=== PATIENT | female | born 1985 | race Caucasian/White ===

== ENCOUNTER → 2016-10-12 | Outpatient (CLI) | payer MEDICAID ==
[~2016-10-12] MED LIST: COLACE100 MG PO; FEOSOL325 MG PO; FLONASE 50 MCG/16 GM NOSE; HUMALOG100 UNIT/1 SUB-Q; K-TAB 10MEQ10 MEQ PO; LANTUS (IN100 UNIT/M SUB-Q; LASIX40 MG PO; OMEPRAZOLE40 MG PO; PERCOCET 5-3251 EACH PO; PROVENTIL OR V6.7 GM INH; SYMBICORT 16010.2 GM INH; SYNTHROID25 MCG PO; TRICOR145 MG PO
== END | disposition disaster alternative care site (69) ==
LOC: GOPD 10-09 09:00
DX: M54.9 Dorsalgia, unspecified (principal)
CPT/HCPCS: J1040